=== PATIENT | female | born 2000 | race Two or more races ===

== ENCOUNTER 2024-03-27 12:51 | Emergency (ER) | payer OTHER ==
[~2024-03-27] VITALS: Ht 154.9 cm; Wt 79.4 kg
[2024-03-27 15:57] LABS: HEMATOCRIT 37.8 % (36.0-45.00); MEAN CELL VOLUME 85.7 fL (80.00-100.00); MEAN CORPUSCULAR HEMOGLOBIN 27.3 pg (27.00-32.0); MEAN CORPUSCULAR HGB CONC 31.9 g/dl (32.0-36.0); PLATELET COUNT 228 K/uL (150-450); RED BLOOD COUNT 4.41 M/uL (4.00-6.00); RED CELL DISTRIBUTION WIDTH 12.8 % (11.5-14.5)
[2024-03-27] MEDS ORDERED: NAPROXEN500 MG PO (16:53)
[2024-03-27] MEDS ORDERED: BENADRYL ALLERG25 MG PO (16:53)
[2024-03-27] MEDS ORDERED: MEDROLPACK PO (16:53)
[2024-03-27] MEDS ORDERED: PEPCID AC20 MG PO (16:53)
== END 2024-03-27 16:55 | disposition home or self-care (01) ==
LOC: ER 12:54
PROVIDERS: General Practice
DX: B34.9 Viral infection, unspecified (principal); R21 Rash and other nonspecific skin eruption